=== PATIENT | female | born 1945 | race Caucasian/White ===

== ENCOUNTER 2023-02-08 00:29 | Emergency (ER) | payer MEDICARE, OTHER | END 2023-02-08 03:07 | disposition home or self-care (01) | LOC: ERS 00:29 | DX: S80.12XA Contusion of left lower leg, initial encounter (principal); E03.9 Hypothyroidism, unspecified; I10 Essential (primary) hypertension; Z79.899 Other long term (current) drug therapy; W18.30XA Fall on same level, unspecified, initial encounter | CPT/HCPCS: 99283 ==

== ENCOUNTER 2023-11-26 14:04 | Outpatient (CLI) | payer MEDICARE | END 2023-11-26 14:05 | disposition home or self-care (01) | LOC: BICULT 14:04 | PROVIDERS: ATTEND Urology | DX: N32.81 Overactive bladder (principal); K76.0 Fatty (change of) liver, not elsewhere classified | CPT/HCPCS: 76770 ==

== ENCOUNTER 2023-12-31 07:23 | Outpatient (CLI) | payer MEDICARE ==
[2023-12-31] MEDS ORDERED: Regadenoson 0.4 MG/5 ML SYRINGE ONE (09:27)
== END 2023-12-31 07:24 | disposition home or self-care (01) ==
LOC: NM 07:23
PROVIDERS: ATTEND Internal Medicine
DX: Z01.818 Encounter for other preprocedural examination (principal)
CPT/HCPCS: 78452; 93017; A9502; J2785 ×2

== ENCOUNTER 2024-03-03 12:32 | Outpatient (CLI) | payer MEDICARE | END 2024-03-03 12:33 | disposition home or self-care (01) | LOC: BICMAMMO 12:32 | PROVIDERS: ATTEND Internal Medicine | DX: Z12.31 Encounter for screening mammogram for malignant neoplasm of breast (principal); N63.10 Unspecified lump in the right breast, unspecified quadrant | CPT/HCPCS: 77067 ==

== ENCOUNTER 2024-03-12 14:23 | Emergency (ER) | payer MEDICARE ==
[2024-03-12] MEDS ORDERED: Acetaminophen 500 MG TAB ONE (14:35)
[2024-03-12] MEDS ORDERED: Metoclopramide HCl 10 MG (2 mL) VIAL ONE (14:35)
[2024-03-12] MEDS ORDERED: diphenhydrAMINE 50 MG/ML VIAL ONE (14:39)
[2024-03-12 14:55] LABS: #Basophils 0.03 10x3/uL (0.0-0.2); %Basophils 0.5 % (0.0-1.0); %Eosinophils 1.2 % (0.0-10.0); %Lymphocytes 20.9 % (21.0-51.0); %Monocytes 9.7 % (0.0-10.0); %Neutrophils 67.2 % (42.0-75.0); Hematocrit 37.1 % (36.0-47.0); Hemoglobin 12.4 g/dL (12.0-16.0); Mean Corpuscular HGB CONC 33.4 g/dL (32.0-36.0); Mean Corpuscular Hemoglobin 32.5 pg (27.0-31.0); Mean Corpuscular Volume 97.1 fL (78.0-98.0); Mean Platelet Volume 11.2 fL (7.4-10.4); Platelet Count 217 10x3/uL (130-400); RBC Distribution Width 11.8 % (11.5-14.5); Red Blood Cell (RBC) Count 3.82 mill/uL (4.20-5.40)
[2024-03-12 15:13] LABS: ALT (SGPT) 14 U/L (8-55); AST (SGOT) 17 U/L (5-34); Albumin 3.9 g/dL (3.4-4.8); Alkaline Phosphatase 68 U/L (40-110); Anion Gap 17 mmol/L (10-20); BUN (Urea Nitrogen) 17 mg/dL (9.8-20.1); Bilirubin, Total 0.7 mg/dL (0.2-1.2); Calc. Creatinine Clearance 0 mL/min (70-130); Carbon Dioxide 23 mmol/L (23-31); Chloride 100 mmol/L (98-107); Estimated GFR 77; Glucose 133 mg/dL (83-110); Potassium 3.8 mmol/L (3.5-5.1); Protein, Total 6.9 g/dL (5.8-8.1); Sodium 136 mmol/L (136-145)
[2024-03-12 15:16] LABS: Troponin I Less than 0.010 ng/mL (< 0.028)
[2024-03-12] MEDS ORDERED: methylPREDNISolone Sod Succ/PF 125 MG/2 ML VIAL ONE (16:18)
[2024-03-12] MEDS ORDERED: Magnesium 2 GM/50 ML BAG (IN WATER) ONE (16:18)
[2024-03-12] MEDS ORDERED: Divalproex Sodium 250 MG (DR) TAB ONE (16:18)
[2024-03-12] MEDS ORDERED: fentaNYL 50 mcg/mL 1 mL Vial ONE (17:01)
[2024-03-12 17:54] LABS: Bilirubin Negative (Negative); Blood, Urine Negative (Negative); CAUTI Indications for Culture Dysuria,urgency,freq; Clarity Clear (Clear); Glucose, Urine (Dipstick) Normal (Negative); Ketone, Urine Negative (Negative); Leukocyte Negative Leu/uL (Negative); Nitrite Negative (Negative); Protein, Urine (Dipstick) Negative (Neg-Trace); RBC/HPF 0-3 HPF (0-3); Specific Gravity, Urine 1.031 (1.002-1.036); Squamous Epithelial None Seen HPF (0-3); Urobilinogen Normal mg/dL (Less than 2); WBC/HPF 0-3 HPF (0-3); pH, Urine 5.5 (5.0-9.0)
[2024-03-12 17:55] LABS: Bacteria/HPF Rare-Few HPF (None Seen)
[2024-03-12 17:56] LABS: Urine Culture Reflex No No
[2024-03-12 17:59] LABS: Lactic Acid 1.59 mmol/L (0.5-2.2)
== END 2024-03-12 18:59 | disposition home or self-care (01) ==
LOC: ERS 14:23
DX: R51.9 Headache, unspecified (principal); I10 Essential (primary) hypertension
CPT/HCPCS: 51701; 70450; 80053; 81001; 83605; 84484; 85025; 93005; 96374; 96375; 99285; J1200; J2765; J2919; J3010; J3475; 36415

== ENCOUNTER 2024-03-15 13:56 | Outpatient (CLI) | payer MEDICARE | END 2024-03-15 13:57 | disposition home or self-care (01) | LOC: BICMAMMO 13:56 | PROVIDERS: ATTEND Internal Medicine | DX: N63.10 Unspecified lump in the right breast, unspecified quadrant (principal) | CPT/HCPCS: 76642; 77065; G0279 ==

== ENCOUNTER 2024-06-19 12:52 | Outpatient (CLI) | payer MEDICARE ==
[2024-06-19 14:25] LABS: #Basophils 0.04 10x3/uL (0.0-0.2); %Basophils 0.7 % (0.0-1.0); %Eosinophils 2.1 % (0.0-10.0); %Lymphocytes 31.7 % (21.0-51.0); %Monocytes 9.7 % (0.0-10.0); %Neutrophils 55.5 % (42.0-75.0); Hematocrit 38.8 % (36.0-47.0); Hemoglobin 12.5 g/dL (12.0-16.0); Mean Corpuscular HGB CONC 32.2 g/dL (32.0-36.0); Mean Corpuscular Hemoglobin 32.3 pg (27.0-31.0); Mean Corpuscular Volume 100.3 fL (78.0-98.0); Mean Platelet Volume 11.3 fL (7.4-10.4); Platelet Count 237 10x3/uL (130-400); RBC Distribution Width 12.2 % (11.5-14.5); Red Blood Cell (RBC) Count 3.87 mill/uL (4.20-5.40)
[2024-06-19 14:38] LABS: Prothrombin Time 12.8 sec (12.0-14.7)
[2024-06-19 14:49] LABS: Anion Gap 16 mmol/L (10-20); BUN (Urea Nitrogen) 14 mg/dL (9.8-20.1); Calc. Creatinine Clearance 0 mL/min (70-130); Calcium 9.5 mg/dL (7.8-10.44); Carbon Dioxide 23 mmol/L (23-31); Chloride 108 mmol/L (98-107); Estimated GFR 88; Glucose 126 mg/dL (83-110); Sodium 143 mmol/L (136-145)
== END 2024-06-19 12:53 | disposition home or self-care (01) ==
LOC: LABBT 12:52
PROVIDERS: ATTEND Orthopaedic Surgery
DX: Z01.818 Encounter for other preprocedural examination (principal); M16.11 Unilateral primary osteoarthritis, right hip
CPT/HCPCS: 80048; 85025; 85610; 85730; 87081; 93005; 93010

== ENCOUNTER 2024-06-28 07:03 | Inpatient (IN) | payer MEDICARE, OTHER ==
[2024-06-19 13:21] VITALS: BMI 33.6
[2024-06-28] MEDS ORDERED: Vancomycin (BATCH) 300 ML ONE (08:52)
[2024-06-28] MEDS ORDERED: Tranexamic Acid 1,000 MG/10 ML VIAL ONE (08:52)
[2024-06-28] MEDS ORDERED: Sodium Chloride 0.9% 100 ML ONE (08:53)
[2024-06-28] MEDS ORDERED: fentaNYL 50 mcg/mL 1 mL Vial ONE ×3 (08:58→12:54)
[2024-06-28] MEDS ORDERED: Midazolam HCl 2 mg/2 ml Vial ONE (08:59)
[2024-06-28] MEDS ORDERED: fentaNYL 50 mcg/mL 1 mL Vial SLOW IVP SCH (09:15)
[2024-06-28] MEDS ORDERED: Midazolam HCl 2 mg/2 ml Vial SLOW IVP SCH (09:15)
[2024-06-28] MEDS ORDERED: Naloxone HCl 0.4 mg/ml Vial IVP PRN ×2 (09:59→10:02)
[2024-06-28] MEDS ORDERED: Promethazine HCl 25 MG/ML VIAL IM PRN ×2 (10:00→12:19)
[2024-06-28] MEDS ORDERED: traMADol HCl 50 MG TAB PO PRN (10:00)
[2024-06-28] MEDS ORDERED: Bupivacaine 0.25% 10 ML VIAL EPIDURAL PRN (10:00)
[2024-06-28] MEDS ORDERED: Promethazine HCl 25 MG SUPP PR PRN (10:00)
[2024-06-28] MEDS ORDERED: Ondansetron PF 4 MG/2 ML Vial IVP PRN ×2 (10:00→12:19)
[2024-06-28] MEDS ORDERED: Naloxone HCl 0.4 mg/ml Vial IV PRN (10:00)
[2024-06-28] MEDS ORDERED: PROPOFOL 20 ML ONE (10:10)
[2024-06-28] MEDS ORDERED: fentaNYL PF 100 MCG/2 ML SYRINGE ONE (10:10)
[2024-06-28] MEDS ORDERED: CEFAZOLIN 2 GM VIAL ONE (10:11)
[2024-06-28] MEDS ORDERED: Rocuronium Bromide 10 MG/ML (10ML VIAL) ONE (10:25)
[2024-06-28] MEDS ORDERED: Lidocaine 1% PF 5 ML VIAL ONE (10:25)
[2024-06-28] MEDS ORDERED: Ondansetron PF 4 MG/2 ML Vial ONE (10:47)
[2024-06-28] MEDS ORDERED: Dexamethasone 20 MG/5 ML VIAL ONE (10:47)
[2024-06-28] MEDS ORDERED: Ketorolac Tromethamine 30 MG (1 mL) VIAL ONE (10:47)
[2024-06-28] MEDS ORDERED: SUGAMMADEX SODIUM 200 MG/2 ML VIAL ONE (11:53)
[2024-06-28] MEDS ORDERED: Ketorolac Tromethamine 30 MG (1 mL) VIAL IVP SCH (12:00)
[2024-06-28] MEDS ORDERED: Zolpidem Tartrate 5 MG TAB PO PRN (12:19)
[2024-06-28] MEDS ORDERED: Acetaminophen 325 MG TAB PO PRN (12:19)
[2024-06-28] MEDS: diphenhydrAMINE 25 MG CAP PO PRN (14:52)
[2024-06-28] MEDS: Acetaminophen 500 MG TAB PO SCH (14:53)
[2024-06-28] MEDS: Sodium Chloride 0.9% 1,000 ML IV SCH (14:53)
[2024-06-28] MEDS: CEFAZOLIN 2 GM in Sodium Chloride 0.9% 100 ML IVPB SCH (17:48)
[2024-06-28] MEDS: Senokot S 8.6-50 MG TAB PO SCH (19:55)
[2024-06-28] MEDS: Melatonin 3 MG TAB PO SCH (19:55)
[2024-06-28] MEDS: Ezetimibe 10 MG TAB PO SCH (19:55)
[2024-06-28] MEDS: Trospium 20 MG TAB PO SCH (19:55)
[2024-06-28] MEDS: Atorvastatin Calcium 40 MG TAB PO SCH (19:56)
[2024-06-28] MEDS: DULoxetine 60 MG CAP PO SCH (19:56)
[2024-06-28] MEDS: Icosapent Ethyl 1 GM CAPSULE PO SCH (19:56)
[2024-06-28] MEDS: lamoTRIgine 100 MG TAB PO SCH (19:56)
[2024-06-28] MEDS: Ferrous Gluconate 324 MG TAB PO SCH (19:56)
[2024-06-28] MEDS: Aspirin 81 mg Enteric Coated Tablet PO SCH (20:01)
[2024-06-28] MEDS: Vancomycin 1.5 GM in Sodium Chloride 0.9% 250 ML 300 ML IVPB SCH (20:34)
[2024-06-28] MEDS: Vancomycin 1.5 GRAM/300 ML BAG 1.5 GM in Premix 1 BAG IVPB SCH (20:52)
[2024-06-28] MEDS ORDERED: Non-Formulary Item 1 EACH (Atorvastatin Calcium [Lipitor] 80 MG Tablet) PO SCH (21:00)
[2024-06-28] MEDS ORDERED: Non-Formulary Item 1 EACH (Melatonin [Melatonin] 10 MG Tablet) PO SCH (21:00)
[2024-06-28] MEDS ORDERED: Non-Formulary Item 1 EACH (Icosapent Ethyl [Vascepa] 1 GM Capsule) PO SCH (21:00)
[2024-06-28] MEDS: Moisturizing Cream (Eucerin) 113 GM JAR TOP PRN (21:57)
[2024-06-29] MEDS: FENTANYL 500 MCG/10 ML VIAL 500 MCG, Bupivacaine 0.75% 10 ML in Sodium Chloride 0.9% 80 ML EPIDURAL SCH (04:13)
[2024-06-29 06:05] LABS: Hematocrit 30.5 % (36.0-47.0); Hemoglobin 9.8 g/dL (12.0-16.0); Mean Corpuscular HGB CONC 32.1 g/dL (32.0-36.0); Mean Corpuscular Hemoglobin 32.2 pg (27.0-31.0); Mean Corpuscular Volume 100.3 fL (78.0-98.0); Mean Platelet Volume 11.8 fL (7.4-10.4); Platelet Count 207 10x3/uL (130-400); Red Blood Cell (RBC) Count 3.04 mill/uL (4.20-5.40)
[2024-06-29] MEDS ORDERED: Non-Formulary Item 1 EACH (Dexlansoprazole [Dexilant] 60 MG Cap.Dr.Bp) PO SCH (09:00)
[2024-06-29] MEDS: Multivitamin W/ Minerals 1 TAB PO SCH (09:13)
[2024-06-29] MEDS: Levothyroxine Sodium 125 MCG TAB PO SCH (09:13)
[2024-06-29] MEDS: Lisinopril 20 MG TAB PO SCH (09:13)
[2024-06-29] MEDS: Pantoprazole 40 MG DR.TAB PO SCH (09:13)
[2024-06-29] MEDS: traMADol HCl 50 MG TAB PO PRN (10:04)
[2024-06-29] MEDS ORDERED: Acetaminophen 325 MG TAB PO PRN (11:50)
[2024-06-29] MEDS ORDERED: Acetaminophen/Codeine 30-300mg Tablet PO PRN (11:51)
[2024-06-29] MEDS: Acetaminophen/Codeine 30-300mg Tablet PO PRN (12:01)
[2024-06-29] MEDS: fentaNYL 50 mcg/mL 1 mL Vial SLOW IVP PRN (13:52)
[2024-06-30 05:45] LABS: Hematocrit 26.4 % (36.0-47.0); Hemoglobin 8.5 g/dL (12.0-16.0); Mean Corpuscular HGB CONC 32.2 g/dL (32.0-36.0); Mean Corpuscular Hemoglobin 32.4 pg (27.0-31.0); Mean Corpuscular Volume 100.8 fL (78.0-98.0); Mean Platelet Volume 11.3 fL (7.4-10.4); Platelet Count 153 10x3/uL (130-400); RBC Distribution Width 12.4 % (11.5-14.5); Red Blood Cell (RBC) Count 2.62 mill/uL (4.20-5.40)
[2024-06-30 11:45] VITALS: BP 129/57; TEMP 98.9
== END 2024-06-30 15:53 | DRG 470 ==
LOC: SDC 07:03 → SURG A 10:02 → OBSVTOIN 06-29 14:23
PROVIDERS: ADMIT Orthopaedic Surgery; ATTEND Orthopaedic Surgery
PROC: 0SR903Z Replacement of Right Hip Joint with Ceramic Synthetic Substitute, Open Approach (ICD-10-PCS; principal; 2024-06-29)
DX: M16.11 Unilateral primary osteoarthritis, right hip (principal); I10 Essential (primary) hypertension; E03.9 Hypothyroidism, unspecified; Z90.49 Acquired absence of other specified parts of digestive tract; Z88.8 Allergy status to other drugs, medicaments and biological substances; Z90.710 Acquired absence of both cervix and uterus; F31.9 Bipolar disorder, unspecified; D64.9 Anemia, unspecified; M79.7 Fibromyalgia; Z79.899 Other long term (current) drug therapy; Z60.2 Problems related to living alone
CPT/HCPCS: 36415; 36416; 72170; 85027; 96365; 96375; 96376; C1713; C1776; G0378; J1100; J1885; J2250; J2405; J2704; J3010; J3370; J3490